=== PATIENT | male | born 1945 | race Caucasian/White ===

== ENCOUNTER → 2016-12-04 | Outpatient (CLI) | payer MEDICARE | END | disposition home or self-care (01) | LOC: PCVCCLINIC 12:29 | PROVIDERS: ATTEND Internal Medicine Cardiovascular Disease | DX: I25.10 Atherosclerotic heart disease of native coronary artery without angina pectoris (principal); I49.5 Sick sinus syndrome; E78.00 Pure hypercholesterolemia, unspecified; I48.0 Paroxysmal atrial fibrillation; I25.5 Ischemic cardiomyopathy; I11.0 Hypertensive heart disease with heart failure; I50.9 Heart failure, unspecified; E11.9 Type 2 diabetes mellitus without complications; Z79.899 Other long term (current) drug therapy; Z87.891 Personal history of nicotine dependence; Z95.810 Presence of automatic (implantable) cardiac defibrillator; Z95.1 Presence of aortocoronary bypass graft; Z79.82 Long term (current) use of aspirin; Z79.01 Long term (current) use of anticoagulants; Z91.013 Allergy to seafood | CPT/HCPCS: 80061; 93005; 93283; G0463 ==

== ENCOUNTER → 2017-09-10 | Outpatient (CLI) | payer MEDICARE | END | disposition home or self-care (01) | LOC: PCVCIMAG 12:44 | DX: I08.3 Combined rheumatic disorders of mitral, aortic and tricuspid valves (principal); I48.0 Paroxysmal atrial fibrillation; I25.810 Atherosclerosis of coronary artery bypass graft(s) without angina pectoris; I49.5 Sick sinus syndrome; I25.5 Ischemic cardiomyopathy; I12.9 Hypertensive chronic kidney disease with stage 1 through stage 4 chronic kidney disease, or unspecified chronic kidney disease; E11.22 Type 2 diabetes mellitus with diabetic chronic kidney disease; N18.9 Chronic kidney disease, unspecified; E78.00 Pure hypercholesterolemia, unspecified; Z95.810 Presence of automatic (implantable) cardiac defibrillator; Z95.1 Presence of aortocoronary bypass graft; Z87.891 Personal history of nicotine dependence; Z79.899 Other long term (current) drug therapy; Z79.4 Long term (current) use of insulin; Z79.01 Long term (current) use of anticoagulants | CPT/HCPCS: 80061; 85610; 93283; 93306; G0463 ==

== ENCOUNTER → 2018-04-11 | Outpatient (CLI) | payer MEDICARE | END | disposition home or self-care (01) | LOC: PCVCCLINIC 14:51 | PROVIDERS: ATTEND Internal Medicine Cardiovascular Disease | DX: Z48.812 Encounter for surgical aftercare following surgery on the circulatory system (principal); Z95.810 Presence of automatic (implantable) cardiac defibrillator | CPT/HCPCS: 93283 ==

== ENCOUNTER → 2019-02-15 | Outpatient (CLI) | payer MEDICARE ==
[~2019-02-15] MED LIST: PERFLUTREN PROTEIN-A MICROSPHR 0.22 MG/ML 3 ML VIAL. IV ONE
--- NOTE | 2019-02-16 11:05 | PCVCIMAG ---
APPROVED REPORT Study performed: 02/15/2019 10:36:20 EXAM: Comprehensive 2D, Doppler, and color-flow Echocardiogram with contrast Patient Location: Echo lab Room #: 2Status: routine BSA: 2.19 HR: 60 bpmBP: 126/76 mmHg Rhythm: Atrial Fibrillation/ pacemaker Other Information Risk Factors: Cardiac Risk Factors: HTN Indications Abnormal ECG CVA/TIA Diabetes Atrial Fibrillation Pacemaker Cardiomyopathy Hx: defibrilator/pacemaker 2D Dimensions IVSd: 9.79 (7-11mm)LVOT Diam: 22.81 (18-24mm) LVDd: 68.56 mm PWd: 8.82 (7-11mm)Ascending Ao: 32.05 (22-36mm) LVDs: 60.36 (25-40mm) Left Atrium: 42.72 (27-40mm) Aortic Root: 28.08 mm LV Single Plane 4CH: 39.94 % LV Single Plane 2CH: 49.20 % Biplane EF: 35.0 % Volumes Left Atrial Volume (Systole) Single Plane 4CH: 68.23 mLSingle Plane 2CH: 62.15 mL Biplane LA Volume: 69.00 mLLA ESV Index: 31.00 mL/m2 Aortic Valve AoV Peak Ermias.: 0.96 m/s AO Peak Gr.: 3.65 mmHgLVOT Max P.97 mmHg AO Mean Gr.: 0.73 mmHg AO V2 Mean: 0.35 m/sLVOT Max V: 0.70 m/s AO V2 VTI: 6.71 cm KAILEY Vmax: 3.00 cm2 AI Vmax: 4.56 m/s AI [place]: 2.00 m/s2 AI PHT: 667.18 ms Mitral Valve MV E Max Ermias.: 0.91 m/s MV PHT: 83.66 ms MVA (PHT): 2.63 cm2 Pulmonary Valve PV Peak Ermias.: 0.68 m/sPV Peak Gr.: 1.86 mmHg Tricuspid Valve TR Peak Ermias.: 2.11 m/s TR Peak Gr.: 17.76 mmHg TV Vmax: 0.75 m/sPA Pressure: 25.00 mmHg Left Ventricle Left ventricle is moderately dilated. There is global moderate hypokinesis of the left ventricle.Contrast was used with good results, There is normal left ventricular wall thickness. Left ventricular systolic function is moderate to severely decreased. LVEF is 30-35%. This study is not technically sufficient to allow evaluation of the LV diastolic function due to atrial fibrillation. Right Ventricle The right ventricle is normal size. The right ventricular systolic function is normal. Atria Left atrium is dilated. Right atrium is dilated. Aortic Valve Aortic valve is trileaflet. Moderate aortic regurgitation. There is no aortic valvular stenosis. Mitral Valve The mitral valve is normal in structure. Mild to moderate mitral regurgitation. No evidence of mitral valve stenosis. Tricuspid Valve The tricuspid valve is normal in structure. Mild tricuspid regurgitation with a PA pressure of 25 mmHg. No apparent pulmonary hypertension. Pulmonic Valve The pulmonary valve is normal in structure. There is no pulmonic valvular regurgitation. Great Vessels The aortic root is normal in size. The ascending aorta is normal in size. Aortic arch is normal in caliber. IVC is not visualized. Pericardium There is no pericardial effusion. There is no pleural effusion. <Conclusion> Left ventricle is moderately dilated. Left ventricular systolic function is moderate to severely decreased. There is global moderate hypokinesis of the left ventricle.Contrast was used with good results, LVEF is 30-35%. This study is not technically sufficient to allow evaluation of the LV diastolic function due to atrial fibrillation. The right ventricle is normal size. Left atrium is dilated. Right atrium is dilated. Moderate aortic regurgitation. Mild to moderate mitral regurgitation. Mild tricuspid regurgitation with a PA pressure of 25 mmHg. No apparent pulmonary hypertension. The aortic root is normal in size. There is no pericardial effusion.
== END | disposition home or self-care (01) ==
LOC: PCVCIMAG 10:04
PROVIDERS: ATTEND Internal Medicine Cardiovascular Disease
DX: I08.3 Combined rheumatic disorders of mitral, aortic and tricuspid valves (principal); I25.10 Atherosclerotic heart disease of native coronary artery without angina pectoris; E78.00 Pure hypercholesterolemia, unspecified; I25.5 Ischemic cardiomyopathy; E11.9 Type 2 diabetes mellitus without complications; I49.5 Sick sinus syndrome; I10 Essential (primary) hypertension; I48.2 Chronic atrial fibrillation; R53.83 Other fatigue; D68.59 Other primary thrombophilia; F32.9 Major depressive disorder, single episode, unspecified; Z95.810 Presence of automatic (implantable) cardiac defibrillator
CPT/HCPCS: 36415; 80061; 93283; C8929; G0463; Q9956

== ENCOUNTER → 2019-04-12 | Outpatient (CLI) | payer MEDICARE ==
[~2019-04-12] MED LIST changes: -PERFLUTREN PROTEIN-A MICROSPHR 0.22 MG/ML 3 ML VIAL. IV ONE; +REGADENOSON 0.4 MG/5 ML DISP.SYRIN. IV ONE
--- NOTE | 2019-04-12 14:37 | PCVCIMAG ---
APPROVED REPORT Imaging Protocol: Rest Tc-99m/Stress Tc-99m 1 day Study performed: 04/12/2019 09:39:49 Indication: CAD, ICM Patient Location: Out-Patient Stress Nurse: Yumiko Williamson RN, Linnette Moses RN MT Tech:Elizabeth Awilda [facility] Ht: 6 ft 0 in Wt: 212 lbs BSA: 2.18 m2 HR: 63 bpm BP: 163/79 mmHg BMI: 28.7 Rhythm: Pacemaker with underlying Atrial Fibrillation Medical History Medical History: HTN, Hyperlipidemia, Diabetic Insulin, Former Smoker, Afib, CAD Medications: Nitroglycerin, Lisinopril, statin, Bystolic Allergies: No known drug allergies Cardiac Risk Factors: Age Previous Cardiac Procedures: 2012 CABG Pretest Chest Pain Characteristics: No chest pain Exercise History: Indeterminate Meds Held (24 hrs): Bystolic Resting Data Rest SPECT myocardial perfusion imaging was performed in supine position 45 minutes following the intravenous injection of 9.9 mCi of Tc-99m Sestamibi. Time of rest injection: 0940 Administration Route: IV Administration Site: Right AC Pharmacologic Stress Pharmacologic stress test was performed by injecting Regadenoson 0.4 mg IV push over 10-15 seconds immediately followed by the intravenous injection of 34.6 mCi of Tc-99m Sestamibi. Time of stress injection: 1050 Date: 04/12/2019 Administration Route: IV Administration Site: Right AC Gated Stress SPECT was performed 45 minutes after stress injection. The images were gated to evaluate regional wall motion and calculate left ventricular ejection fraction. Stress Test Details Stress Test: Pharmacologic stress testing performed using 0.4 mg of regadenoson per 5 mL given IV over 10 seconds. Reason for pharmacologic stress test: physical limitation, gait instability. HRMax Heart Rate (APMHR): 148 bpm Resting HR: 63 bpmTarget HR (85% APMHR): 125 bpm Max HR Achieved: 71 bpm % of APMHR: 47 Recovery HR: 63 bpm BP Resting BP: 163/79 mmHg Max BP: 162/77 mmHg Recovery BP: 153/71 mmHg ECG Resting ECG: Pacemaker with underlying Atrial Fibrillation Stress ECG: Pacemaker with underlying Atrial Fibrillation Arrhythmia: PVC's Recovery ECG: Pacemaker with underlying Atrial Fibrillation Clinical Reason for Termination: Completed protocol Stress Symptoms: Dyspnea Symptoms resolved during recovery. Stress ECG Conclusion non diagnostic Study Quality Study: Good Study Data Post stress, the left ventricular ejection was 29%.. SSS: 8 SRS: 13 SDS: 0 TID = 1.00. Perfusion No evidence of stress induced ischemia. 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 Wall Motion Left ventricular chamber dilatation. Severely decreased left ventricular systolic function. Nuclear Conclusion No evidence of stress induced ischemia. 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 Post stress, the left ventricular ejection was 29%. No prior study available for comparison. Interpreted by: Graeme Lott MD Electronically Approved: 04/12/2019 14:34:12 <Conclusion> non diagnostic
== END | disposition home or self-care (01) ==
LOC: PCVCIMAG 09:08
PROVIDERS: ATTEND Internal Medicine Cardiovascular Disease
DX: I25.10 Atherosclerotic heart disease of native coronary artery without angina pectoris (principal); I25.5 Ischemic cardiomyopathy; I48.21 Permanent atrial fibrillation; Z95.810 Presence of automatic (implantable) cardiac defibrillator; Z87.891 Personal history of nicotine dependence
CPT/HCPCS: 78452; 93017; A9500; J2785